=== PATIENT | female | born 1995 | race Caucasian/White ===

== ENCOUNTER 2024-06-12 19:41 | Inpatient (IN) | payer OTHER, BC ==
[~2024-06-12 19:41] MED LIST: Bupivacaine 0.25% 10 ML SDV ONE
[2024-06-12] MEDS ORDERED: Calcium Carbonate 500 MG Tab.Chew PO PRN (20:31)
[2024-06-12] MEDS ORDERED: Lidocaine 1% 50 ML MDV INJECT PRN (20:31)
[2024-06-12] MEDS ORDERED: Sodium Chloride 0.9% 10 ML Syringe FLUSH PRN (20:31)
[2024-06-12 20:52] LABS: BASOPHILS PERCENT AUTO 0.2 % (0.0-1.0); EOSINOPHILS ABSOLUTE AUTO 0.1 K/mm3 (0.0-0.4); EOSINOPHILS PERCENT AUTO 0.5 % (0.0-6.0); HEMATOCRIT 41.7 % (37.0-47.0); HEMOGLOBIN 13.8 gm/dl (12.0-16.0); IMMATURE GRAN ABSOLUTE AUTO 0.06 K/mm3 (0.00-0.05); IMMATURE GRAN PERCENT AUTO 0.4 % (0.0-0.4); LYMPHOCYTES ABSOLUTE AUTO 2.5 K/mm3 (1.0-4.8); LYMPHOCYTES PERCENT AUTO 18.2 % (24.0-44.0); MEAN CORPUSCULAR HEMOGLOBIN 30.6 pg (28.0-32.0); MEAN CORPUSCULAR HGB CONC 33.1 g/dl (32.0-36.0); MEAN CORPUSCULAR VOLUME 92.5 fl (83.0-99.0); MEAN PLATELET VOLUME 9.8 fl (9.4-12.3); MONOCYTES ABSOLUTE AUTO 0.4 K/mm3 (0.0-0.8); MONOCYTES PERCENT AUTO 2.8 % (0.0-8.0); NEUTROPHILS ABSOLUTE AUTO 10.6 K/mm3 (1.8-7.7); NEUTROPHILS PERCENT AUTO 77.9 % (41.0-71.0); PLATELET COUNT,PLT 293 K/mm3 (150-400); RED BLOOD CELL COUNT 4.51 M/mm3 (4.10-5.30)
[2024-06-12] MEDS: Lactated Ringers 1,000 ML IV SCH (20:53)
[2024-06-12] MEDS: Ampicillin 2 GM in Sodium Chloride 0.9% 100 ML IV ONE (20:53)
[2024-06-12] MEDS: Oxytocin/0.9 % Sodium Chloride 30 UNIT/500 ML BAG IV SCH (21:05)
[2024-06-12] MEDS: Sodium Chloride 0.9% 10 ML Syringe FLUSH SCH (23:12)
[2024-06-13] MEDS: Ampicillin 1 GM in Sodium Chloride 0.9% 100 ML IV SCH (00:57)
[2024-06-13] MEDS: Nalbuphine 10 MG/1 ML Vial IVPUSH PRN (02:36)
[2024-06-13 03:21] LABS: CREATININE 0.7 mg/dL (0.55-1.02); EST CRCL DRUG DOSING (CG) 92.94 mL/min; URIC ACID 5.7 mg/dL (2.6-6.0)
[2024-06-13] MEDS: Ondansetron 4 MG/2 ML SDV IVPUSH PRN (04:58)
[2024-06-13] MEDS ORDERED: diphenhydrAMINE 50 MG/ML SDV IVPUSH PRN (10:14)
[2024-06-13] MEDS ORDERED: ePHEDrine 50 MG/ML SDV IVPUSH PRN (10:14)
[2024-06-13] MEDS: fentaNYL 100 MCG/2 ML SDV EPIDUR PRN (10:55)
[2024-06-13] MEDS: Bupivacaine/fentaNYL/NS 100 ML Bag EPIDUR PRN (10:55)
[2024-06-13] MEDS: Oxytocin/0.9 % Sodium Chloride 30 UNIT/500 ML BAG IV SCH (18:23)
[2024-06-13] MEDS ORDERED: Ibuprofen 600 MG Tab PO PRN (19:32)
[2024-06-13] MEDS: Acetaminophen 325 MG Tab PO SCH (21:06)
[2024-06-13] MEDS: Benzocaine/Menthol 20%-0.5% Spray 78 GM Cannister TOP PRN (21:07)
[2024-06-13] MEDS: Witch Hazel Medicated Pads 40/Jar TOP PRN (21:07)
== END 2024-06-15 15:48 | disposition home or self-care (01) | DRG 807 ==
LOC: JD.OBCHECK 19:41 → JD.OB 19:45 → JD.OBCHECK 19:50 → JD.OB 19:51 → OBSVTOIN 06-13 18:08 → JD.OB 06-13 18:09
PROVIDERS: ADMIT Obstetrics & Gynecology; ATTEND Obstetrics & Gynecology
PROC: 10E0XZZ Delivery of Products of Conception, External Approach (ICD-10-PCS; principal; 2024-06-13)
PROC: 0KQM0ZZ Repair Perineum Muscle, Open Approach (ICD-10-PCS; 2024-06-13)
PROC: 3E0R3BZ Introduction of Anesthetic Agent into Spinal Canal, Percutaneous Approach (ICD-10-PCS; 2024-06-13)
PROC: 00HU33Z Insertion of Infusion Device into Spinal Canal, Percutaneous Approach (ICD-10-PCS; 2024-06-13)
DX: O42.02 Full-term premature rupture of membranes, onset of labor within 24 hours of rupture (principal); Z37.0 Single live birth; O70.1 Second degree perineal laceration during delivery; Z3A.40 40 weeks gestation of pregnancy
CPT/HCPCS: 36415; 51701; 59025; 59409; 82565; 83615; 84450; 84460; 84520; 84550; 85025; 86592; 86850; 86900; 86901; A9270-GY; J0290; J0665; J2300; J2405; J3010; J3490; J7120; J7999